=== PATIENT | male | born 1995 ===

== ENCOUNTER 2017-05-15 15:41 | Emergency (ER) | payer OTHER ==
--- NOTE | 2017-05-15 16:01 | UC ---
Throat Pain/Nasal Tonny HPI - HPI Summary HPI Summary: Pt presents with sore throat, body aches, and mild generalized abdominal pain since yesterday. Parents were sick with similar symptoms a few weeks ago. Pt did not get the flu shot this year. He is eating and drinking without difficulty. Denies fever, chills, cough, SOB, chest pain, vomiting, diarrhea, flank pain, or dysuria. - History of Current Complaint Stated Complaint: THROAT PAIN, STOMACH, ELEVATED TEMP Time Seen by Provider: 05/15/17 15:59 Hx Obtained From: Patient Onset/Duration: Sudden Onset Severity: Moderate Pain Intensity: 4 Pain Scale Used: 0-10 Numeric - Allergies/Home Medications Allergies/Adverse Reactions: Allergies Allergy/AdvReac Type Severity Reaction Status Date / Time No Known Allergies Allergy Verified 05/15/17 16:07 Home Medications: Home Medications Multivitamin/Iron/Folic Acid [Centrum Adults Tablet] 1 each PO DAILY 05/15/17 [ History Confirmed 05/15/17] PMH/Surg Hx/FS Hx/Imm Hx Previously Healthy: Yes - Surgical History Surgical History: None - Family History Known Family History: Positive: None - Social History Occupation: Student Lives: With Family Alcohol Use: None Substance Use Type: None Smoking Status (MU): Never Smoked Tobacco Review of Systems Constitutional: Fatigue, Other - Body aches Skin: Negative Eyes: Negative ENT: Sore Throat Respiratory: Negative Cardiovascular: Negative Gastrointestinal: Abdominal Pain - generalized Genitourinary: Negative Neurovascular: Negative Musculoskeletal: Negative Neurological: Negative Psychological: Negative All Other Systems Reviewed And Are Negative: Yes Physical Exam Triage Information Reviewed: Yes Appearance: Well-Appearing, No Pain Distress, Well-Nourished Eyes: Positive: Conjunctiva Clear. Negative: Conjunctiva Inflamed, Discharge ENT: Positive: Hearing grossly normal, Pharynx normal, TMs normal, Uvula midline. Negative: Pharyngeal erythema, Nasal congestion, Nasal drainage, TM bulging, TM dull, TM red, Tonsillar swelling, Tonsillar exudate, Hoarse voice, Sinus tenderness Neck: Positive: Supple, Nontender, No Lymphadenopathy Respiratory: Positive: Lungs clear, Normal breath sounds, No respiratory distress, No accessory muscle use Cardiovascular: Positive: RRR, No Murmur, Pulses Normal Abdomen Description: Positive: No Organomegaly, Soft, Other: - Generalized mild TTP. Negative obturator sign. Negative heel strike.. Negative: CVA Tenderness ( R), CVA Tenderness (L), Distended, Guarding, Hepatomegaly, McBurney's Point Tenderness, Splenomegaly Bowel Sounds: Positive: Present Neurological: Positive: Alert Psychological: Positive: Age Appropriate Behavior Skin: Negative: rashes, significant lesion(s) Throat Pain/Nasal Course/Dx - Course Course Of Treatment: POC strep negative. POC flu negative. UA negative. Suspect viral illness - advised rest, fluids, and tylenol for fever/discomfort. I had a long conversation with the pt that if his symptoms worsen - he should go to the ED for further eval as his workup today was negative. - Differential Dx/Diagnosis Provider Diagnoses: Viral syndrome Discharge - Sign-Out/Discharge Documenting (check all that apply): Discharge - Discharge Plan Condition: Stable Disposition: HOME Patient Education Materials: Viral Syndrome (ED) Referrals: Angie Moore MD [Primary Care Provider] - Additional Instructions: If you develop a fever, shortness of breath, chest pain, new or worsening symptoms - please call your PCP or go to the ED. 1) May take tylenol if you develop a fever and for your discomfort 2) Your strep, flu, and urine tests were all normal in the clinic today. 3) If your symptoms persist or worsen or if you develop vomiting or diarrhea - please go to the closest Emergency Room for further evaluation. - Billing Disposition and Condition Condition: STABLE Disposition: HOME
[2017-05-15 16:54] VITALS: BP 124/69
== END 2017-05-15 17:37 | disposition home or self-care (01) ==
LOC: UCEAST 15:41
DX: B34.9 Viral infection, unspecified (principal)
CPT/HCPCS: 81003; 87502; 87651; 99202; G0463